=== PATIENT | female | born 1995 | race Caucasian/White ===

== ENCOUNTER 2016-06-04 21:28 | Emergency (ER) | payer OTHER ==
[~2016-06-04] VITALS: Ht 147.3 cm; Wt 44.0 kg
[~2016-06-04 21:28] MED LIST: CEPH-443 PO; FLUC150T17 PO; METR70GE15 VAG
[2016-06-04 21:43] VITALS: Ht 147.3 cm; Wt 44.0 kg
[2016-06-04] MEDS ORDERED: IBUP-1542 PO (22:40)
[2016-06-04] MEDS ORDERED: ALBU18HF INHALATION (22:40)
[2016-06-04] MEDS ORDERED: SODI126M NASAL (22:40)
[2016-06-04] MEDS ORDERED: GUAI473L22 PO (22:40)
--- NOTE | 2016-06-04 22:46 | ERD ---
ER Documentation Chief Complaint Date/Time DATE: 06/04/16 TIME: 22:42 Chief Complaint cough x 1 week HPI 21-year-old female complaining of sore throat and cough 1 week. She lost her voice 3 days ago. Cough is nonproductive, worse at night. She will occasionally get "cough attacks", and feel short of breath. Patient reports fever and night, temperature 100.4. She took NyQuil at home, without helping. Denies abdominal pain, vomiting, diarrhea. Denies headache or neck pain. ROS All systems reviewed and are negative except as per history of present illness. Medications Home Meds Active Scripts Albuterol Sulfate* (Ventolin HFA*) 18 Gm Hfa.aer.ad, 2 PUFF INHALATION Q4H, #1 INHALER Prov:DESTINY MCCAULEY. TOOTH POLISHER 06/04/16 Guaifenesin-Codeine Phosphate* (Guaifenesin* AC Cough Syrup) 473 Ml Liquid, 10 ML PO Q4H Y for COUGH, #120 ML Prov:DESTINY MCCAULEY TOOTH POLISHER 06/04/16 Ibuprofen* (Motrin*) 600 Mg Tab, 600 MG PO Q6H Y for PAIN AND OR ELEVATED TEMP, #30 TAB Prov:DESTINY MCCAULEY. TOOTH POLISHER 06/04/16 Sodium Chloride (Saline Nasal Mist) 126 Ml Mist, 2 SPRAY NASAL Q2H Y for NASAL CONGESTION, #1 BOTTLE Prov:DESTINY MCCAULEY. TOOTH POLISHER 06/04/16 Fluconazole* (Diflucan*) 150 Mg Tablet, 150 MG PO ONCE, #2 TAB Take second dose 3 days after 1st dose. Prov:DWAYNE RODAS PA-C 03/26/16 Cephalexin* (Keflex*) 500 Mg Capsule, 500 MG PO QID for 5 Days, CAP Prov:DWAYNE RODAS PA-C 03/26/16 Metronidazole* (Metrogel* Vaginal) 0.75% -70 Gram Gel.w.appl, 1 APPFUL VAG BID for 7 Days, TUB Prov:MAO FRIEDMAN PA-C 09/07/15 Fluconazole* (Diflucan*) 150 Mg Tablet, 150 MG PO ONCE, #2 TAB Prov:MAO FRIEDMAN PA-C 09/07/15 Allergies Allergies: Coded Allergies: Sulfa (Sulfonamide Antibiotics) (Verified Allergy, Unknown, SOB, 06/04/16) PMhx/Soc Medical and Surgical Hx: pt denies Medical Hx, pt denies Surgical Hx History of Surgery: No Anesthesia Reaction: No Hx Neurological Disorder: No Hx Respiratory Disorders: No Hx Cardiac Disorders: No Hx Psychiatric Problems: No Hx Miscellaneous Medical Probl: Yes (UTIs,Vaginitis) Hx Alcohol Use: Yes (Socially) Hx Substance Use: No Hx Tobacco Use: No Smoking Status: Never smoker Physical Exam Vitals Vital Signs Date Time Temp Pulse Resp B/P Pulse Ox O2 Delivery O2 Flow Rate FiO2 06/04/16 21:43 99.1 110 20 118/73 100 Physical Exam General impression: Well-developed, well-nourished. Alert, oriented, in no acute distress Head: Normocephalic, atraumatic. Eyes: PERRL, EOM normal. Conjunctiva not injected. ENT: Nasal mucosa erythematous and swollen with clear nasal discharge. Oral mucosa normal. Oropharynx erythematous, no pharyngeal swelling or exudates. Neck: Supple. Right anterior cervical lymphadenopathy with tenderness. No nuchal rigidity. Respiration: Normal respiratory effort. Lungs clear to auscultate bilaterally. No wheezes, rales or rhonchi. Cardiovascular: Regular rate and rhythm. No murmurs or extra heart sounds. Abdomen: Abdomen normal to inspection. Nontender. No masses or organomegaly. Bowel sounds normal. Neuro: Mental status normal, speech normal. PUBLIC HEALTH SANITARIAN TECHNICIAN grossly intact. Skin: Normal turgor. No rash or lesions. Psych: Normal mood and affect. Procedures/MDM Patient is afebrile, in no respiratory distress. Lungs are clear to auscultate. I doubt that patient has pneumonia or bronchitis. Likely patient's symptoms are result of viral upper respiratory infection. Patient also has laryngitis, likely viral as well. Patient does not show any signs of airway compromise. Patient appears well, stable for discharge and outpatient management. Medical decision making shared with patient and family. Education provided to patient and family. Patient and family expressed understanding of the plan. Medications on discharge: Saline nasal spray, ibuprofen, albuterol HFA, guaifenesin with codeine. Follow-up: Primary care provider in 2-3 days or return to ED if worse. Departure Diagnosis: Primary Impression: URI (upper respiratory infection) URI type: acute nasopharyngitis (common cold) Qualified Code: J00 - Acute nasopharyngitis Additional Impression: Laryngitis Condition: Stable Patient Instructions: Adult Self-Care for Colds, Laryngitis Referrals: [facility] YOU HAVE RECEIVED A MEDICAL SCREENING EXAM AND THE RESULTS INDICATE THAT YOU DO NOT HAVE A CONDITION THAT REQUIRES URGENT TREATMENT IN THE EMERGENCY DEPARTMENT. FURTHER EVALUATION AND TREATMENT OF YOUR CONDITION CAN WAIT UNTIL YOU ARE SEEN IN YOUR DOCTORS OFFICE WITHIN THE NEXT 1-2 DAYS. IT IS YOUR RESPONSIBILITY TO MAKE AN APPOINTMENT FOR FOLOW-UP CARE. IF YOU HAVE A PRIMARY DOCTOR --you should call your primary doctor and schedule an appointment IF YOU DO NOT HAVE A PRIMARY DOCTOR YOU CAN CALL OUR PHYSICIAN REFERRAL HOTLINE AT IF YOU CAN NOT AFFORD TO SEE A PHYSICIAN YOU CAN CHOSE FROM THE FOLLOWING [facility] [address] [facility]. [facility] [address] [facility] [address] [facility] [facility] [address] [facility]. [facility] [address] [facility]. [facility]. [address] Additional Instructions: Call your primary care doctor TOMORROW for an appointment during the next 2-3 days.See the doctor sooner or return here if your condition worsens before your appointment time. DESTINY MCCAULEY NP Jun 04, 2016 22:46
[2016-06-04 23:13] VITALS: RESP 20; TEMP 98
== END 2016-06-04 23:14 | disposition home or self-care (01) ==
LOC: FTE 21:28
DX: J00 Acute nasopharyngitis [common cold] (principal); J04.0 Acute laryngitis
CPT/HCPCS: 99283

== ENCOUNTER 2016-09-28 20:25 | Emergency (ER) | payer OTHER ==
[~2016-09-28] VITALS: Ht 137.2 cm; Wt 45.5 kg
[~2016-09-28 20:25] MED LIST changes: +ALBU18HF INHALATION; +GUAI473L22 PO; +IBUP-1542 PO; +SODI126M NASAL
[2016-09-28 21:02] VITALS: Ht 137.2 cm; Wt 45.5 kg
[2016-09-28 22:33] LABS: URINE BLOOD (Dip) POC Trace-intact (NEGATIVE)
[2016-09-28] MEDS ORDERED: METR500T PO (22:54)
[2016-09-28] MEDS ORDERED: NITR-58 PO (22:56)
[2016-09-28] MEDS ORDERED: CEFTRIAXONE 250 MG INJ IM ONE (23:00)
[2016-09-28] MEDS ORDERED: LIDOCAINE 1% (MDV) 20 ML INJ SC ONE (23:00)
[2016-09-28] MEDS ORDERED: metroNIDAZOLE 500 MG TAB PO ONE (23:00)
[2016-09-28] MEDS ORDERED: AZITHROMYCIN 250 MG TAB PO ONE (23:00)
--- NOTE | 2016-09-28 23:06 | ERD ---
ER Documentation Chief Complaint Date/Time DATE: 09/28/16 TIME: 22:58 Chief Complaint Dysuria and pelvic pain x1 week HPI 21-year-old female complaining of vaginal discharge and pelvic pain 1 week. Described discharges whitish and greenish in color, so has more liquid sometimes more clumpy. She has vaginal itching and burning. Patient also reports dysuria, urinary frequency and urgency for the last week as well. Patient is accompanied by her partner, who she has been with for only 1 month. Denies fever or chills. Denies vaginal odor. Denies flank pain. ROS All systems reviewed and are negative except as per history of present illness. Medications Home Meds Active Scripts Nitrofurantoin Monohyd Macrocr* (Macrobid*) 100 Mg Capsr, 100 MG PO BID for 7 Days, CAP Prov:DESTINY MCCAULEY. SENIOR MICROSTRATEGY DEVELOPER 09/28/16 Metronidazole* (Flagyl*) 500 Mg Tablet, 500 MG PO BID for 7 Days, TAB Prov:DESTINY MCCAULEY. SENIOR MICROSTRATEGY DEVELOPER 09/28/16 Albuterol Sulfate* (Ventolin HFA*) 18 Gm Hfa.aer.ad, 2 PUFF INHALATION Q4H, #1 INHALER Prov:DESTINY MCCAULEY. SENIOR MICROSTRATEGY DEVELOPER 06/04/16 Guaifenesin-Codeine Phosphate* (Guaifenesin* AC Cough Syrup) 473 Ml Liquid, 10 ML PO Q4H Y for COUGH, #120 ML Prov:DESTINY MCCAULEY. SENIOR MICROSTRATEGY DEVELOPER 06/04/16 Ibuprofen* (Motrin*) 600 Mg Tab, 600 MG PO Q6H Y for PAIN AND OR ELEVATED TEMP, #30 TAB Prov:DESTINY MCCAULEY. SENIOR MICROSTRATEGY DEVELOPER 06/04/16 Sodium Chloride (Saline Nasal Mist) 126 Ml Mist, 2 SPRAY NASAL Q2H Y for NASAL CONGESTION, #1 BOTTLE Prov:DESTINY MCCAULEY. SENIOR MICROSTRATEGY DEVELOPER 06/04/16 Fluconazole* (Diflucan*) 150 Mg Tablet, 150 MG PO ONCE, #2 TAB Take second dose 3 days after 1st dose. Prov:DWAYNE RODAS-C 03/26/16 Cephalexin* (Keflex*) 500 Mg Capsule, 500 MG PO QID for 5 Days, CAP Prov:DWAYNE RODAS-C 03/26/16 Metronidazole* (Metrogel* Vaginal) 0.75% -70 Gram Gel.w.appl, 1 APPFUL VAG BID for 7 Days, TUB Prov:MAO FRIEDMAN PA-C 09/07/15 Fluconazole* (Diflucan*) 150 Mg Tablet, 150 MG PO ONCE, #2 TAB Prov:MAO FRIEDMAN PA-C 09/07/15 Allergies Allergies: Coded Allergies: Sulfa (Sulfonamide Antibiotics) (Verified Allergy, Unknown, SOB, 06/04/16) PMhx/Soc History of Surgery: No Anesthesia Reaction: No Hx Neurological Disorder: No Hx Respiratory Disorders: No Hx Cardiac Disorders: No Hx Psychiatric Problems: No Hx Miscellaneous Medical Probl: Yes (UTIs,Vaginitis) Hx Alcohol Use: Yes (Socially) Hx Substance Use: No Hx Tobacco Use: No Smoking Status: Never smoker Physical Exam Vitals Vital Signs Date Time Temp Pulse Resp B/P Pulse Ox O2 Delivery O2 Flow Rate FiO2 09/28/16 21:02 97.4 68 20 111/68 98 Physical Exam General: Well-developed, well-nourished, conscious and coherent, in no distress Skin: Warm and dry without rash, good texture and turgor Head: Normocephalic without evidence of trauma Eyes: Sclera and conjunctivae normal; pupils equal, round, and reactive to light; extraocular movements are intact Chest: Normal AP diameter. Good expansion without retractions. Nontender. Lungs are clear to auscultate bilaterally with good tidal volume Heart: Regular rate and rhythm. No murmur, rub, or gallops heard Abdomen: Soft and nontender without masses, guarding, or rebound. Bowel sounds are active. No hepatosplenomegaly Back: Without spinal or CVA tenderness : External genitalia without lesions or masses. Large amount of yellow/ green color discharge noted in the vaginal canal and cervix. Cervix erythematous with cervical motion tenderness noted. Uterus tender, normal size. No adnexal tenderness or masses noted. Extremities: Full range of motion. Good strength bilaterally. No clubbing, cyanosis, or edema. Peripheral pulses are intact. Sensation intact Neuro: Alert and oriented 4, GCS 15. Cranial nerves grossly intact. Motor and sensory exams nonfocal. Moves all extremities. Speech clear. Gait normal Results 24 hrs Laboratory Tests Test 09/28/16 22:37 Bedside Urine pH (LAB) 5.5 Bedside Urine Protein (LAB) 1+ Bedside Urine Glucose (UA) 0.1% Bedside Urine Ketones (LAB) Negative Bedside Urine Blood Trace-intact Bedside Urine Nitrite (LAB) Positive Bedside Urine Leukocyte Esterase (L 1+ Current Medications Medications (Trade) Dose Ordered Sig/Matthew Route PRN Reason Start Time Stop Time Status Last Admin Dose Admin Azithromycin (Zithromax) 1,000 mg ONCE ONCE PO 09/28/16 23:00 09/28/16 23:01 Ceftriaxone Sodium (Rocephin) 250 mg ONCE ONCE IM 09/28/16 23:00 09/28/16 23:01 Lidocaine (Xylocaine 1% (Mdv) 20 ml) 1 ml ONCE ONCE SC 09/28/16 23:00 09/28/16 23:01 Metronidazole (Flagyl) 500 mg ONCE ONCE PO 09/28/16 23:00 09/28/16 23:01 Procedures/MDM Well-appearing 21-year-old female presented ED with dysuria, urinary frequency and urgency. Urine dip is positive for UTI. Patient is afebrile, no CVA tenderness, I doubt pyelonephritis. Patient also complaining of vaginal itching and burning along with copious vaginal discharge. I suspect trichomonas infection recently exam findings. Since patient has been with her current sexual partner for 1 month, she is at high risk for other sexually transmitted infection such as chlamydia and gonorrhea. Rocephin 250 mg IM and azithromycin 1 g p.o. given to the patient in the ED to treat for chlamydia and gonorrhea preemptively. I advised her partner to get [facility]. Patient appears well, stable for discharge and outpatient management. Medical decision making shared with patient and family. Education provided to patient and family. Patient and family expressed understanding of the plan. Medications on discharge: Metronidazole, Macrobid. Follow-up: Primary care provider in 2-3 days or return to ED if worse. Departure Diagnosis: Primary Impression: UTI (urinary tract infection) Urinary tract infection type: acute cystitis Hematuria presence: with hematuria Qualified Code: N30.01 - Acute cystitis with hematuria Additional Impression: Pelvic inflammatory disease Condition: Good Patient Instructions: What Are Sexually Transmitted Diseases (STDs)?, Understanding Urinary Tract Infections (UTIs), Vaginitis, Trichomonas Referrals: DOCTOR,NOT ON STAFF (PCP) COMM[facility]ITY CL[facility] YOU HAVE RECEIVED A MEDICAL SCREENING EXAM AND THE RESULTS INDICATE THAT YOU DO NOT HAVE A CONDITION THAT REQUIRES URGENT TREATMENT IN THE EMERGENCY DEPARTMENT. FURTHER EVALUATION AND TREATMENT OF YOUR CONDITION CAN WAIT UNTIL YOU ARE SEEN IN YOUR DOCTORS OFFICE WITHIN THE NEXT 1-2 DAYS. IT IS YOUR RESPONSIBILITY TO MAKE AN APPOINTMENT FOR FOLOW-UP CARE. IF YOU HAVE A PRIMARY DOCTOR --you should call your primary doctor and schedule an appointment IF YOU DO NOT HAVE A PRIMARY DOCTOR YOU CAN CALL OUR PHYSICIAN REFERRAL HOTLINE AT IF YOU CAN NOT AFFORD TO SEE A PHYSICIAN YOU CAN CHOSE FROM THE FOLLOWING COUNT INCLUDES THE [facility]ICS [facility] [address] [facility]. [facility] [address] [facility] [address] [facility] [facility] [address] [facility]. [facility] [address] [facility]. [facility]. [address] [facility] Hours: 8:00 am - 5:00 pm Additional Instructions: Call your primary care doctor TOMORROW for an appointment during the next 2-3 days.See the doctor sooner or return here if your condition worsens before your appointment time. Please have your partner treated for STD and trichomoas as well. DESTINY MCCAULEY NP Sep 28, 2016 23:06
== END 2016-09-28 23:47 | disposition home or self-care (01) ==
LOC: FTE 20:25
DX: N30.01 Acute cystitis with hematuria (principal); N73.9 Female pelvic inflammatory disease, unspecified; R10.2 Pelvic and perineal pain
CPT/HCPCS: 81003; 87591; J0696; Z7610; 99284

== ENCOUNTER 2016-12-22 04:24 | Emergency (ER) | payer OTHER ==
[~2016-12-22] VITALS: Ht 149.9 cm; Wt 49.0 kg
[~2016-12-22 04:24] MED LIST changes: +METR500T PO; +NITR-58 PO
[2016-12-22 04:29] VITALS: Ht 149.9 cm; Wt 49.0 kg
[2016-12-22] MEDS ORDERED: NPH10OT LEFT EAR (05:13)
--- NOTE | 2016-12-22 05:19 | ERD ---
ER Documentation Chief Complaint Date/Time DATE: 12/22/16 TIME: 05:15 Chief Complaint according to pt.: "small to mid sized jimenez went inside my ear" HPI 21-year-old female presents to emergency department for complaints of a left ear foreign body, insect that when inside the left ear, while waiting in the waiting room, the insect just went out on it's own, they were able to kill it, she is complaining of discomfort in the left ear 4/10 scale, not better or worse with anything. Patient denies any fever or chills. Patient denies any problems with hearing. ROS All systems reviewed and are negative except as per history of present illness. Medications Home Meds Active Scripts Neomycin/Polymyxin/Hydrocort* (Cortisporin* Otic) 10 Ml Susp, 4 DROP LEFT EAR QID for 7 Days, EA Prov:GEO LOYD NP 12/22/16 Nitrofurantoin Monohyd Macrocr* (Macrobid*) 100 Mg Capsr, 100 MG PO BID for 7 Days, CAP Prov:DESTINY MCCAULEY NP 09/28/16 Metronidazole* (Flagyl*) 500 Mg Tablet, 500 MG PO BID for 7 Days, TAB Prov:DESTINY MCCAULEY NP 09/28/16 Albuterol Sulfate* (Ventolin HFA*) 18 Gm Hfa.aer.ad, 2 PUFF INHALATION Q4H, #1 INHALER Prov:DESTINY MCCAULEY NP 06/04/16 Guaifenesin-Codeine Phosphate* (Guaifenesin* AC Cough Syrup) 473 Ml Liquid, 10 ML PO Q4H Y for COUGH, #120 ML Prov:DESTINY MCCAULEY NP 06/04/16 Ibuprofen* (Motrin*) 600 Mg Tab, 600 MG PO Q6H Y for PAIN AND OR ELEVATED TEMP, #30 TAB Prov:DESTINY MCCAULEY NP 06/04/16 Sodium Chloride (Saline Nasal Mist) 126 Ml Mist, 2 SPRAY NASAL Q2H Y for NASAL CONGESTION, #1 BOTTLE Prov:DESTINY MCCAULEY NP 06/04/16 Fluconazole* (Diflucan*) 150 Mg Tablet, 150 MG PO ONCE, #2 TAB Take second dose 3 days after 1st dose. Prov:DWAYNE RODAS PA-C 03/26/16 Cephalexin* (Keflex*) 500 Mg Capsule, 500 MG PO QID for 5 Days, CAP Prov:CLARKDWAYNE PA-C 03/26/16 Metronidazole* (Metrogel* Vaginal) 0.75% -70 Gram Gel.w.appl, 1 APPFUL VAG BID for 7 Days, TUB Prov:MAO FRIEDMAN PA-C 09/07/15 Fluconazole* (Diflucan*) 150 Mg Tablet, 150 MG PO ONCE, #2 TAB Prov:MAO FRIEDMAN PA-C 09/07/15 Allergies Allergies: Coded Allergies: Sulfa (Sulfonamide Antibiotics) (Verified Allergy, Unknown, SOB, 06/04/16) PMhx/Soc History of Surgery: No Anesthesia Reaction: No Hx Neurological Disorder: No Hx Respiratory Disorders: No Hx Cardiac Disorders: No Hx Psychiatric Problems: No Hx Miscellaneous Medical Probl: Yes (UTIs,Vaginitis) Hx Alcohol Use: Yes (Socially) Hx Substance Use: No Hx Tobacco Use: No FmHx Family History: No coronary disease, No diabetes, No other Physical Exam Vitals Vital Signs Date Time Temp Pulse Resp B/P Pulse Ox O2 Delivery O2 Flow Rate FiO2 12/22/16 04:29 97.8 84 18 111/64 99 Physical Exam GENERAL: The patient is well developed and appropriate for usual state of health, in no apparent distress. HEENT: Atraumatic. Ears: Normal tympanic membrane, no erythema or bulging. No ear canal swelling. noted drops of blood in the left ear. no foreign body noted in the left ear.Nose: normal nasal turbinates, no erythema or swelling. Normal nasal discharge. Throat: oropharynx clear. No tonsillar swelling or tonsillar exudates. No lymphadenopathy. CHEST: Clear to auscultation bilaterally. There are no rales, wheezes or rhonchi. HEART: Regular rate and rhythm. No murmurs, clicks, rubs or gallops. No S3 or S4. ABDOMEN: Soft, nontender and nondistended. Good bowel sounds. No rebound or guarding. No gross peritonitis. No gross organomegaly or masses. No Cordova sign or McBurney point tenderness. BACK: No midline or flank tenderness. EXTREMITIES: Equal pulses bilaterally. There is no peripheral clubbing, cyanosis or edema. No focal swelling or erythema. Full range of motion. Grossly neurovascularly intact. NEURO: Alert and oriented. Cranial nerves 2-12 intact. Motor strength in all 4 extremities with 5/5 strength. Sensation grossly intact. Normal speech and gait. SKIN: There is no apparent rash or petechia. The skin is warm and dry. HEMATOLOGIC AND LYMPHATIC: There is no evidence of excessive bruising or lymphedema. No gross cervical, axillary, or inguinal lymphadenopathy. Procedures/MDM Procedure note: After patient's verbal consent, the left ear canal is lavage using diluted hydrogen peroxide with normal saline. After procedure, patient left ear was cleaned, no foreign body noted. Patient tolerated procedure well. No TM perforation noted. No cerumen impaction noted afterwards. Medical decision making: Patient had a foreign body, insect when inside the left ear, it is not in there anymore, there is drops of blood noted inside the ear, also patient has some discomfort, patient will be given Corticosporin to prevent infection of affected area. No TM perforation. No symptoms of any other forms of infection. Prescription was given for Corticosporin, is advised to follow with primary care doctor in 2-3 days for reevaluation of symptoms. Patient was advised to return to emergency department for any worsening symptoms. SNF and disposition: Home. Stable. Departure Diagnosis: Primary Impression: Foreign body of left ear Encounter type: initial encounter Qualified Code: T16.2XXA - Foreign body of left ear, initial encounter Condition: Stable Patient Instructions: Foreign Body, Ear Canal (Removed) GEO LOYD NP Dec 22, 2016 05:18
[2016-12-22 05:25] VITALS: BP 108/56; PULSE 82; RESP 15; TEMP 98.2
== END 2016-12-22 05:25 | disposition home or self-care (01) ==
LOC: FTE 04:24
DX: T16.2XXA Foreign body in left ear, initial encounter (principal); X58.XXXA Exposure to other specified factors, initial encounter; Y92.9 Unspecified place or not applicable
CPT/HCPCS: 99283

== ENCOUNTER 2017-01-03 12:59 | Emergency (ER) | payer OTHER ==
[~2017-01-03] VITALS: Ht 157.5 cm; Wt 46.0 kg
[~2017-01-03 12:59] MED LIST changes: +NPH10OT LEFT EAR
[2017-01-03 13:06] VITALS: Ht 157.5 cm; Wt 46.0 kg
[2017-01-03] MEDS ORDERED: IBUP-1542 PO (14:12)
[2017-01-03] MEDS ORDERED: PRED20TA PO (14:12)
--- NOTE | 2017-01-03 14:16 | ERD ---
ER Documentation Chief Complaint Date/Time DATE: 01/03/17 TIME: 14:14 Chief Complaint SORETHROAT X2 DAYS, NO SOB, SPEAKING FULL SENTENCES HPI This is a 21-year-old female who presents with 2 days of sore throat. She states is difficult when she swallows but she is tolerating oral intake but she has pain with swallowing. She states she had a fever at home but admits she did not take her temperature. No cough. No nausea vomiting. She took TheraFlu before coming to the emergency room. ROS All systems reviewed and are negative except as per history of present illness. Medications Home Meds Active Scripts Prednisone* (Prednisone*) 20 Mg Tab, 40 MG PO DAILY for 4 Days, TAB Prov:MIRA KAPOOR PA-C 01/03/17 Ibuprofen* (Motrin*) 600 Mg Tab, 600 MG PO Q6, #30 TAB Prov:MIRA KAPOOR PA-C 01/03/17 Neomycin/Polymyxin/Hydrocort* (Cortisporin* Otic) 10 Ml Susp, 4 DROP LEFT EAR QID for 7 Days, EA Prov:GEO LOYD NP 12/22/16 Nitrofurantoin Monohyd Macrocr* (Macrobid*) 100 Mg Capsr, 100 MG PO BID for 7 Days, CAP Prov:DESTINY MCCAULEY NP 09/28/16 Metronidazole* (Flagyl*) 500 Mg Tablet, 500 MG PO BID for 7 Days, TAB Prov:DESTINY MCCAULEY NP 09/28/16 Albuterol Sulfate* (Ventolin HFA*) 18 Gm Hfa.aer.ad, 2 PUFF INHALATION Q4H, #1 INHALER Prov:DESTINY MCCAULEY MEDICAL PHOTOGRAPHER 06/04/16 Guaifenesin-Codeine Phosphate* (Guaifenesin* AC Cough Syrup) 473 Ml Liquid, 10 ML PO Q4H Y for COUGH, #120 ML Prov:DESTINY MCCAULEY MEDICAL PHOTOGRAPHER 06/04/16 Ibuprofen* (Motrin*) 600 Mg Tab, 600 MG PO Q6H Y for PAIN AND OR ELEVATED TEMP, #30 TAB Prov:DESTINY MCCAULEY MEDICAL PHOTOGRAPHER 06/04/16 Sodium Chloride (Saline Nasal Mist) 126 Ml Mist, 2 SPRAY NASAL Q2H Y for NASAL CONGESTION, #1 BOTTLE Prov:DESTINY MCCAULEY MEDICAL PHOTOGRAPHER 06/04/16 Fluconazole* (Diflucan*) 150 Mg Tablet, 150 MG PO ONCE, #2 TAB Take second dose 3 days after 1st dose. Prov:DWAYNE RODAS PA-C 03/26/16 Cephalexin* (Keflex*) 500 Mg Capsule, 500 MG PO QID for 5 Days, CAP Prov:DWAYNE RODAS PA-C 03/26/16 Metronidazole* (Metrogel* Vaginal) 0.75% -70 Gram Gel.w.appl, 1 APPFUL VAG BID for 7 Days, TUB Prov:MAO FRIEDMAN PA-C 09/07/15 Fluconazole* (Diflucan*) 150 Mg Tablet, 150 MG PO ONCE, #2 TAB Prov:MAO FRIEDMAN PA-C 09/07/15 Allergies Allergies: Coded Allergies: Sulfa (Sulfonamide Antibiotics) (Verified Allergy, Unknown, SOB, 01/03/17) PMhx/Soc History of Surgery: No Anesthesia Reaction: No Hx Neurological Disorder: No Hx Respiratory Disorders: No Hx Cardiac Disorders: No Hx Psychiatric Problems: No Hx Miscellaneous Medical Probl: Yes (UTIs,Vaginitis) Hx Alcohol Use: Yes (Socially) Hx Substance Use: No Hx Tobacco Use: No FmHx Family History: No diabetes Physical Exam Vitals Vital Signs Date Time Temp Pulse Resp B/P Pulse Ox O2 Delivery O2 Flow Rate FiO2 01/03/17 13:06 98.3 96 20 113/69 97 Physical Exam INITIAL VITAL SIGNS: Reviewed by me GENERAL: Awake, alert and oriented x 4, well appearing, nontoxic, speaking in full sentences. No acute distress HEAD: Atraumatic NECK: Supple. No masses. Full range of motion. No meningismus. No midline tenderness. EYES: EOMI. PERRL. EAR: No tenderness over the mastoids bilaterally. No exudates in the canals. TMs nonerythematous. NOSE: Normal nose. THROAT: No tonilar erythema or edema. No exudates. Uvula midline. No kissing tonsils. RESPIRATORY: Clear to auscultation bilaterally. Symmetric chest wall rise. No wheezing or rales. No accessory muscle use. CV: Regular rate and rhythm. No murmurs, rubs, or gallops. Procedures/MDM Patient has pharyngitis most likely viral. Her vital signs are all normal she is well-appearing and her physical exam is normal to. I gave her prescription for ibuprofen and a short course of prednisone. Patient counseled regarding my diagnostic impression and care plan. Prior to discharge all questions answered. Pt agrees with treatment plan and understands strict return precautions. Pt is instructed to follow up with primary care provider within 24-48 hours. Precautionary instructions provided including instructions to return to the ER if not improving or for any worsening or changing symptoms or concerns. Departure Diagnosis: Primary Impression: Pharyngitis Condition: Stable Patient Instructions: Pharyngitis, Viral Additional Instructions: Call your primary care doctor TOMORROW for an appointment during the next 1-2 days.See the doctor sooner or return here if your condition worsens before your appointment time. MIRA KAPOOR PA-C Jan 03, 2017 14:16
== END 2017-01-03 14:20 | disposition home or self-care (01) ==
LOC: FTE 12:59
DX: J02.9 Acute pharyngitis, unspecified (principal)
CPT/HCPCS: 99283

== ENCOUNTER 2017-01-08 20:36 | Emergency (ER) | payer OTHER ==
[~2017-01-08] VITALS: Ht 147.3 cm; Wt 46.5 kg
[~2017-01-08 20:36] MED LIST changes: +PRED20TA PO
[2017-01-08 20:42] VITALS: Ht 147.3 cm; Wt 46.5 kg
[2017-01-08 21:59] LABS: URINE BLOOD (Dip) POC Negative (NEGATIVE)
--- NOTE | 2017-01-08 23:07 | RADRPT ---
PROCEDURE: US Pelvis CLINICAL INDICATION: Pelvic pain with irregular periods TECHNIQUE: Sonographic evaluation of the pelvis was performed utilizing both transabdominal and tr ansvaginal technique. Curved array transabdominal transducer technique as well as a high frequency endovaginal probe was utilized. Images were reviewed on the high-resolution PACS workstation. COMPARISON: No prior studies are available for comparison. FINDINGS: The uterus is normal in size, echogenicity, and morphology measuring about 7.4 x 5.7 x 5.2 cm. The uterus is anteverted in normal position. The endometrium is borderline prominent measuring 14 mm i n diameter. The trilaminar stripe of the endometrium appears intact. No uterine myomas are visualize d. The right ovary measures 2.1 x 1.3 x 1.2 cm in dimension. The left ovary measures 4.0 x 2.7 x 3.2 c m in dimension. The left ovary contains a complex cyst measuring about 3.0 x 2.2 x 2.8 cm with a ce ntral slightly thick septation and slight lace-like echogenic foci and no internal flow. The right ovary is unremarkable. There are no adnexal masses. There is a small to moderate amount of free flu id within the posterior cul-de-sac. No other incidental abnormality is identified. RPTAT: ZZ IMPRESSION: 1. Complex 3.0 cm left ovarian cyst with septations and lace-like internal foci which may correspond with a hemorrhagic cyst. 2. Small to moderate amount of free fluid within the posterior pelvis. 3. Borderline prominent endometrium which can be seen with the secretory phase of menstruation. .Amanda Newman MD, Date Time Electronically viewed and signed by .Amanda Newman MD, MD on 01/08/2017 23:07 .T/
[2017-01-08] MEDS ORDERED: IBUP400T22 PO (23:25)
[2017-01-08] MEDS ORDERED: FLUC150T17 PO (23:25)
[2017-01-08] MEDS ORDERED: CEFTRIAXONE 250 MG INJ IM ONE (23:30)
[2017-01-08] MEDS ORDERED: AZITHROMYCIN 250 MG TAB PO ONE (23:30)
[2017-01-08] MEDS ORDERED: LIDOCAINE 1% (MDV) 20 ML INJ SC ONE (23:30)
--- NOTE | 2017-01-08 23:39 | ERD ---
ER Documentation Chief Complaint Date/Time DATE: 01/08/17 TIME: 23:31 Chief Complaint pelvic pain x 2 days HPI Patient is a 21-year-old female who presents to the emergency department for concerns of pelvic pain 3 days. Patient describes the pain to be in her lower suprapubic region. Patient reports dysuria. She denies any frequency, urgency or hematuria. Patient also reports increased vaginal discharge. She describes her discharge to be white, thick and occasionally green in color. Patient denies any malodorous discharge. Patient denies any fevers, chills, nausea, vomiting, upper abdominal pain, back pain. Patient is sexually active. Patient is unsure if she could have an STD at this time. She also reports irregular periods. She states her last period was in March 2016. Patient denies any hormonal use. ROS All systems reviewed and are negative except as per history of present illness. Medications Home Meds Active Scripts Ibuprofen* (Motrin*) 400 Mg Tab, 400 MG PO Q6, #30 TAB Prov:BRIGIDA GARSIA PA-C 01/08/17 Fluconazole* (Diflucan*) 150 Mg Tablet, 150 MG PO ONCE, #2 TAB Prov:BRIGIDA GARSIA PA-C 01/08/17 Prednisone* (Prednisone*) 20 Mg Tab, 40 MG PO DAILY for 4 Days, TAB Prov:MIRA KAPOOR PA-C 01/03/17 Ibuprofen* (Motrin*) 600 Mg Tab, 600 MG PO Q6, #30 TAB Prov:MIRA KAPOOR PA-C 01/03/17 Neomycin/Polymyxin/Hydrocort* (Cortisporin* Otic) 10 Ml Susp, 4 DROP LEFT EAR QID for 7 Days, EA Prov:GEO LOYD NP 12/22/16 Nitrofurantoin Monohyd Macrocr* (Macrobid*) 100 Mg Capsr, 100 MG PO BID for 7 Days, CAP Prov:DESTINY MCCAULEY NP 09/28/16 Metronidazole* (Flagyl*) 500 Mg Tablet, 500 MG PO BID for 7 Days, TAB Prov:DESTINY MCCAULEY NP 09/28/16 Albuterol Sulfate* (Ventolin HFA*) 18 Gm Hfa.aer.ad, 2 PUFF INHALATION Q4H, #1 INHALER Prov:DESTINY MCCAULEY CABIN CREW 06/04/16 Guaifenesin-Codeine Phosphate* (Guaifenesin* AC Cough Syrup) 473 Ml Liquid, 10 ML PO Q4H Y for COUGH, #120 ML Prov:DESTINY MCCAULEY CABIN CREW 06/04/16 Ibuprofen* (Motrin*) 600 Mg Tab, 600 MG PO Q6H Y for PAIN AND OR ELEVATED TEMP, #30 TAB Prov:DESTINY MCCAULEY. CABIN CREW 06/04/16 Sodium Chloride (Saline Nasal Mist) 126 Ml Mist, 2 SPRAY NASAL Q2H Y for NASAL CONGESTION, #1 BOTTLE Prov:DESTINY MCCAULEY. CABIN CREW 06/04/16 Fluconazole* (Diflucan*) 150 Mg Tablet, 150 MG PO ONCE, #2 TAB Take second dose 3 days after 1st dose. Prov:DWAYNE RODAS PA-C 03/26/16 Cephalexin* (Keflex*) 500 Mg Capsule, 500 MG PO QID for 5 Days, CAP Prov:DWAYNE RODAS PA-C 03/26/16 Metronidazole* (Metrogel* Vaginal) 0.75% -70 Gram Gel.w.appl, 1 APPFUL VAG BID for 7 Days, TUB Prov:MAO FRIEDMAN PA-C 09/07/15 Fluconazole* (Diflucan*) 150 Mg Tablet, 150 MG PO ONCE, #2 TAB Prov:MAO FRIEDMAN PA-C 09/07/15 Allergies Allergies: Coded Allergies: Sulfa (Sulfonamide Antibiotics) (Verified Allergy, Unknown, SOB, 01/03/17) PMhx/Soc Medical and Surgical Hx: pt denies Medical Hx, pt denies Surgical Hx History of Surgery: No Anesthesia Reaction: No Hx Neurological Disorder: No Hx Respiratory Disorders: No Hx Cardiac Disorders: No Hx Psychiatric Problems: No Hx Miscellaneous Medical Probl: Yes (UTIs,Vaginitis) Hx Alcohol Use: Yes (Socially) Hx Substance Use: No Hx Tobacco Use: No Smoking Status: Never smoker Physical Exam Vitals Vital Signs Date Time Temp Pulse Resp B/P Pulse Ox O2 Delivery O2 Flow Rate FiO2 01/08/17 23:58 72 18 109/67 98 Room Air 01/08/17 20:42 97.7 76 20 119/59 100 Physical Exam GENERAL: Well-developed, well-nourished female. Appears in no acute distress. HEAD: Normocephalic, atraumatic. EYES: Pupils are equally reactive bilaterally. EOMs grossly intact. No conjunctival erythema. ENT: Moist mucous membranes. No uvula deviation. No kissing tonsils. NECK: Supple. No meningismus. Normal range of motion of the neck. LUNG: Clear to auscultation bilaterally. No rhonchi, wheezing, rales or coarse breath sounds. HEART: Regular rate and rhythm. No murmurs, rubs or gallops. ABDOMEN: No scars, ecchymosis or rashes noted. Soft, and nondistended. Tender to palpation in suprapubic region, L pelvic region. Positive bowel sounds in all four quadrants. No rebound tenderness, no guarding. (-) McBurney's point tenderness. No CVA tenderness. FEMALE GENITALIA: Exam was completed with a activities counselor present. Normal external female genitalia. Normal vaginal mucosal without lesions. Cervix visualized, With white cottage cheese like discharge noted in the office. No strawberry cervix. No adnexal fullness or cervical motion tenderness. EXTREMITIES: Equal pulses bilaterally. No peripheral clubbing, cyanosis or edema. No unilateral leg swelling. NEUROLOGIC: Alert and oriented. Moving all four extremities without any difficulty. Normal speech. Steady gait. SKIN: Normal color. Warm and dry. No rashes or lesions. Results 24 hrs Laboratory Tests Test 01/08/17 22:06 Bedside Urine pH (LAB) 7.0 Bedside Urine Protein (LAB) Negative Bedside Urine Glucose (UA) Negative Bedside Urine Ketones (LAB) Negative Bedside Urine Blood Negative Bedside Urine Nitrite (LAB) Negative Bedside Urine Leukocyte Esterase (L Trace Current Medications Medications (Trade) Dose Ordered Sig/Matthew Route PRN Reason Start Time Stop Time Status Last Admin Dose Admin Ceftriaxone Sodium (Rocephin) 250 mg ONCE ONCE IM 01/08/17 23:30 01/08/17 23:31 DC 01/08/17 23:35 Lidocaine (Xylocaine 1% (Mdv) 20 ml) 20 ml ONCE ONCE SC 01/08/17 23:30 01/08/17 23:31 DC 01/08/17 23:36 Azithromycin (Zithromax) 1,000 mg ONCE ONCE PO 01/08/17 23:30 01/08/17 23:31 DC 01/08/17 23:36 Procedures/MDM ED COURSE: The patient was stable throughout ED course. I kept the patient and/or family informed of laboratory and diagnostic imaging results throughout the ED course. DIAGNOSTIC IMAGING: Read by radiologist. Patient: YASMANI MCCOY : 1995 Age: 21 Sex: F MR #: [id number] DOS: 01/08/172128 Ordering MD: BRIGIDA GARSIA PA-C Location: [facility] Room/Bed: PROCEDURE: US Pelvis CLINICAL INDICATION: Pelvic pain with irregular periods TECHNIQUE: Sonographic evaluation of the pelvis was performed utilizing both transabdominal and transvaginal technique. Curved array transabdominal transducer technique as well as a high frequency endovaginal probe was utilized. Images were reviewed on the high-resolution PACS workstation. COMPARISON: No prior studies are available for comparison. FINDINGS: The uterus is normal in size, echogenicity, and morphology measuring about 7.4 x 5.7 x 5.2 cm. The uterus is anteverted in normal position. The endometrium is borderline prominent measuring 14 mm in diameter. The trilaminar stripe of the endometrium appears intact. No uterine myomas are visualized. The right ovary measures 2.1 x 1.3 x 1.2 cm in dimension. The left ovary measures 4.0 x 2.7 x 3.2 cm in dimension. The left ovary contains a complex cyst measuring about 3.0 x 2.2 x 2.8 cm with a central slightly thick septation and slight lace-like echogenic foci and no internal flow. The right ovary is unremarkable. There are no adnexal masses. There is a small to moderate amount of free fluid within the posterior cul-de-sac. No other incidental abnormality is identified. RPTAT: ZZ IMPRESSION: 1. Complex 3.0 cm left ovarian cyst with septations and lace-like internal foci which may correspond with a hemorrhagic cyst. 2. Small to moderate amount of free fluid within the posterior pelvis. 3. Borderline prominent endometrium which can be seen with the secretory phase of menstruation. .Amanda Newman MD, MD Date Time Electronically viewed and signed by .Amanda Newman MD, MD on 01/08/2017 23: 07 .T/ CC: BRIGIDA GARSIA PA-C Of note, I reviewed the patient's pelvic ultrasound imaging studies which showed bilateral Doppler flow. See Imaging studies notes. MEDICATIONS GIVEN: Rocephin IM, azithromycin p.o. Patient tolerated medication well with no adverse reactions. MEDICAL DECISION MAKING: This is a 21-year-old female who presents emergency department for concerns of pelvic pain 3 days as well as increased vaginal discharge. Vital signs were reviewed. Patient was afebrile. Urine test was negative. Pelvic exam as well as vaginal cultures were obtained. She had no CMT tenderness. Vaginal cultures showed 2+ yeast, 2+ hyphae. No clue cells were noted. No motile trichomonas were noted. Urine dip was negative infection. Pelvic US showed 1. Complex 3.0 cm left ovarian cyst with septations and lace-like internal foci which may correspond with a hemorrhagic cyst. 2. Small to moderate amount of free fluid within the posterior pelvis. 3. Borderline prominent endometrium which can be seen with the secretory phase of menstruation.Patient also had concerns of STDs. STD cultures pending. Patient was empirically treated for STD exposure. Patient was given Rocephin IM and azithromycin. Given these findings, the patient's presentation is most consistent with hemorrhagic ovarian cyst, candidiasis, possible STD exposure. I have a much lower clinical concern for ectopic , ovarian torsion, PID, tubo- ovarian abscess, fibroids, endometriosis, vulvovaginitis, uterine prolapse, ovarian cancer, uterine cancer, nephrolithiasis, pyelonephritis, UTI, appendicitis, diverticulitis, bowel obstruction, perirectal abscess. PRESCRIPTIONS: Ibuprofen, Diflucan DISCHARGE: At this time, patient is stable for discharge and outpatient management. I have instructed the patient to follow-up with his/her primary care physician in 1-2 days.She was advised to follow-up with an CART ATTENDANT in the next 1-2 days. Referral information given. I have discussed with the patient the possibility of needing to see a specialist for further workup and diagnostic studies if the pain persists. I have instructed the patient to promptly return to the ER at any time for any new or worsening symptoms including increased pain, nausea, vomiting, vaginal bleeding, weakness or fever. The patient and/or family expressed understanding of and agreement with this plan. All questions were answered. Home care instructions were provided. Disclaimer: Inadvertent spelling and grammatical errors are likely due to EHR/ dictation software use and do not reflect on the overall quality of patient care. Also, please note that the electronic time recorded on this note does not necessarily reflect the actual time of the patient encounter. Departure Diagnosis: Primary Impression: Yeast infection Additional Impressions: Ovarian cyst Laterality: unspecified laterality Qualified Code: N83.209 - Cyst of ovary, unspecified laterality Possible exposure to STD Condition: Stable Patient Instructions: What Are Ovarian Cysts?, Vaginal Infection: Yeast ( Candidiasis) Referrals: [facility] YOU HAVE RECEIVED A MEDICAL SCREENING EXAM AND THE RESULTS INDICATE THAT YOU DO NOT HAVE A CONDITION THAT REQUIRES URGENT TREATMENT IN THE EMERGENCY DEPARTMENT. FURTHER EVALUATION AND TREATMENT OF YOUR CONDITION CAN WAIT UNTIL YOU ARE SEEN IN YOUR DOCTORS OFFICE WITHIN THE NEXT 1-2 DAYS. IT IS YOUR RESPONSIBILITY TO MAKE AN APPOINTMENT FOR FOLOW-UP CARE. IF YOU HAVE A PRIMARY DOCTOR --you should call your primary doctor and schedule an appointment IF YOU DO NOT HAVE A PRIMARY DOCTOR YOU CAN CALL OUR PHYSICIAN REFERRAL HOTLINE AT IF YOU CAN NOT AFFORD TO SEE A PHYSICIAN YOU CAN CHOSE FROM THE FOLLOWING [facility] [address] [facility]. [facility] [address] [facility]. [facility] [address] [facility]. [facility] [address] [facility]. [facility] [address] [facility]. [facility]. [address] [facility]. [facility] YOU HAVE RECEIVED A MEDICAL SCREENING EXAM AND THE RESULTS INDICATE THAT YOU DO NOT HAVE A CONDITION THAT REQUIRES URGENT TREATMENT IN THE EMERGENCY DEPARTMENT. FURTHER EVALUATION AND TREATMENT OF YOUR CONDITION CAN WAIT UNTIL YOU ARE SEEN IN YOUR DOCTORS OFFICE WITHIN THE NEXT 1-2 DAYS. IT IS YOUR RESPONSIBILITY TO MAKE AN APPOINTMENT FOR FOLOW-UP CARE. IF YOU HAVE A PRIMARY DOCTOR --you should call your primary doctor and schedule and appointment IF YOU DO NOT HAVE A PRIMARY DOCTOR YOU CAN CALL OUR PHYSICIAN REFERRAL HOTLINE AT . IF YOU CAN NOT AFFORD TO SEE A PHYSICIAN YOU CAN CHOSE FROM THE FOLLOWING [facility] INSTITUTIONS: [facility] [address] [place] [address] [facility] [address] [place] [address] [facility] [address] [place] [address] CART ATTEND[place] [address] [facility] [place] [address] [place] [address] OFFICE FAX , [facility] [address] [place] [address] [address] [facility] [address] [place] [address] [address] [facility] [facility] [address] [facility], [address] [address] [address] [facility] [address] [place] [address] [facility] [address] [place] [address] [facility] [address] [address] [place] [address], [facility] [address] [address] [address] [facility]. [address], [facility] [address] [address] [address] [place], [place] [id number] Additional Instructions: Call your primary care doctor/OBGYN TOMORROW for an appointment during the next 1-2 days.See the doctor sooner or return here if your condition worsens before your appointment time. BRIGIDA GARSIA PA-C Jan 08, 2017 23:39
[2017-01-08 23:58] VITALS: BP 109/67; PULSE 72; RESP 18
== END 2017-01-08 23:59 | disposition home or self-care (01) ==
LOC: FTE 20:36
DX: B37.9 Candidiasis, unspecified (principal); N83.202 Unspecified ovarian cyst, left side; Z20.2 Contact with and (suspected) exposure to infections with a predominantly sexual mode of transmission
CPT/HCPCS: 76830; 76856; 81003; 87081; 87210; 87591; 96372; J0696; Z7502; Z7610; 87070

== ENCOUNTER 2017-08-31 21:11 | Emergency (ER) | END 2017-09-01 00:08 | disposition left against medical advice (07) ==

== ENCOUNTER 2018-07-27 19:54 | Emergency (ER) | payer SELFPAY ==
[~2018-07-27] VITALS: Ht 152.4 cm; Wt 54.2 kg
[~2018-07-27 19:54] MED LIST changes: +FLUC150T PO; -FLUC150T17 PO; +IBUP-1561 PO
[2018-07-27 20:00] VITALS: BP 130/72; PULSE 90; RESP 20; Ht 152.4 cm; Wt 54.2 kg
== END 2018-07-28 01:29 | disposition left against medical advice (07) ==
LOC: FTE 19:54
DX: Z53.21 Procedure and treatment not carried out due to patient leaving prior to being seen by health care provider (principal)

== ENCOUNTER 2018-11-05 21:54 | Outpatient (CLI) | payer MEDICAID, OTHER ==
[~2018-11-05] VITALS: Ht 147.3 cm; Wt 51.7 kg
[2018-11-05 22:11] VITALS: BP 92/52; PULSE 90; RESP 18; Ht 147.3 cm; Wt 51.7 kg
[2018-11-05] MEDS ORDERED: SOD CHLORIDE 0.9% 1,000 ML IV ONE (23:00)
[2018-11-05] MEDS ORDERED: CEFTRIAXONE 2 GM/50 ML (PMX) 50 ML IVPB ONE (23:00)
--- NOTE | 2018-11-06 02:10 | TRIAGE ---
OB Triage Datetime Report Generated by CPN: 11/06/2018 02:10 Datetime: 11/06/2018 01:47 Pain Assessment Pain Scale: 0 Pain Presence: None/Denies Pain Type: N/A Datetime: 11/06/2018 00:00 Pain Assessment Pain Scale: 5 Pain Presence: Intermittent Pain Type: Cramping Pain Location: Abdomen Pain Goal: 5 Pain Assessment Comments: pain remains tolerable Datetime: 11/05/2018 22:28 Vaginal Exam Membrane Status: Intact Datetime: 11/05/2018 22:14 Time of Arrival: 11/05/2018 21:42 EGA: 21.0 Arrived By: Wheelchair Arrived From: Home Chief Complaint: abd/pelvic pain Movement: Present Contractions: Denies/Absent Vaginal Bleeding: None Vaginal Discharge: Denies Recent Sexual Intercouse: Denies Patient Complaints: None Time Provider Notified: 11/05/2018 21:50 Provider Notified: TONY Initial Plan: OBTAIN FHTS AND V/S, MONITOR FOR UCS Datetime: 11/05/2018 22:07 Assessment Type: Triage Maternal Assessment Level of Consciousness: Keenly Alert, Responsive DTR's/Clonus: DTRs 2+; No Clonus Headache: Denies Blurred Vision: No Respiratory Effort: Unlabored; Regular Rhythm; Equal Expansion Breath Sounds, Left: Clear and Equal Breath Sounds, Right: Clear and Equal Nausea/Vomiting: Denies RUQ Epigastric Pain: Denies Lower Extremities Edema: None Degree: None Upper Extremities Edema: None Degree: None Facial Edema: None Fall Risk Assessment History of Falling: (0) No Secondary Diagnosis: (0) No Ambulatory Aid: (0) Bedrest/Nurse Assist IV Therapy: (0) No Gait: (0) Normal/Bedrest/Immobile Mental Status: (0) Oriented to Own Ability Fall Score: 0 Fall Risk Score Definition: No Risk: No action required Pain Assessment Pain Scale: 7 Pain Presence: Constant Pain Type: Ache Pain Location: Abdomen; Right Groin; Left Groin Pain Goal: 5 Pain Relief Measures: Comfort Measures Datetime: 11/05/2018 22:05 Heart Rate Comments: T'S 130'S
--- NOTE | 2018-11-12 18:13 | PN ---
Triage Information Date/Time 11/12/18 late entry for service rendered on 11/05/18 Reason for visit: Abd/pelvic pain Weeks of Gestation 21weeks /Para Diabetes: none Hypertention: none Objective Heart Rate: 130's Heart Rate Comments adequate for GA Contractions: None Exam Rt CVA +tenderness U/A 38 WBC with leukocyte estrase + urine culture and sensitivities sent Results/Medications Medications IV Rocephin with IV bolus Disposition: Discharge Assessment/Plan A IUP 21w UTI P discharge home with PATY Beyer MD Nov 12, 2018 18:13
== END 2018-11-06 02:00 | disposition home or self-care (01) ==
LOC: OBT 21:54 → L-D 21:56 → OBT 11-06 02:00
PROVIDERS: ATTEND Obstetrics & Gynecology
DX: O23.42 Unspecified infection of urinary tract in pregnancy, second trimester (principal); Z3A.21 21 weeks gestation of pregnancy
CPT/HCPCS: 81001; J0696; J7030